=== PATIENT | female | born 1950 | race Caucasian/White ===

== ENCOUNTER 2021-10-04 14:15 | Outpatient (CLI) | payer MEDICARE, SELFPAY ==
[2021-10-04 16:42] LABS: Albumin* 4.6 g/dL (3.3-5.0); Chloride* 103 mmol/L (96-114); Potassium* 3.6 mmol/L (3.6-5.1); Sodium* 140 mmol/L (135-149)
[2021-10-04 16:44] LABS: Aspartate Amino Transferase* 30 U/L (12-35); Bilirubin Total* 0.8 mg/dL (0.1-1.5); Carbon Dioxide* 26 mmol/L (20-32); Creatinine* 0.9 mg/dL (0.5-1.5); Total Protein* 7.3 g/dL (6.0-8.3)
[2021-10-04 16:45] LABS: Alanine Aminotransferase* 17 U/L (4-35); Alkaline Phosphatase* 107 U/L (40-150); Blood Urea Nitrogen* 15 mg/dL (7-30); Calcium* 9.6 mg/dL (8.4-10.6); Glucose* 98 mg/dL (60-115)
[2021-10-04 22:16] LABS: Free T4 Free Thyroxine* 1.38 ng/dL (0.70-1.85)
== END 2021-10-04 14:16 | disposition home or self-care (01) ==
PROVIDERS: PCP Internal Medicine; Visit Provider Internal Medicine
DX: E03.9 Hypothyroidism, unspecified (principal); I10 Essential (primary) hypertension; F40.9 Phobic anxiety disorder, unspecified; G47.00 Insomnia, unspecified; K75.4 Autoimmune hepatitis
CPT/HCPCS: 80053; 84439; 84443

== ENCOUNTER 2021-11-16 13:55 | Outpatient (CLI) | payer MEDICARE, SELFPAY ==
--- NOTE | 2021-11-16 14:00 | CRLHL7_ITS ---
For Patients: As a result of the Century Cures Act, medical imaging exams and procedure reports are released immediately into your electronic medical record. You may view this report before your referring provider. If you have questions, please contact your health care provider. BILATERAL SCREENING MAMMOGRAM WITH COMPUTER-AIDED DETECTION AND TOMOSYNTHESIS TECHNIQUE: CC and MLO views were obtained. These mammographic images have been obtained using full-field digital technique. These mammographic images were interpreted with the benefit of computer-aided detection. Breast Tomosynthesis was used in this interpretation. COMPARISON FILM: 11/08/20, 11/06/19, 07/16/18. FINDINGS: The breasts are heterogeneously dense, which may obscure small masses IMPRESSION: There is no radiographic evidence for malignancy. ASSESSMENT: BI-RADS Category 1: Negative RECOMMENDATION: Routine screening mammogram in 1 year. A lay language report of this examination will be provided to the patient. Eliseo Win M.D. Diagnostic Radiologist [email or web address] SALOME/Dictated by: Eliseo Win MD @ 11/17/2021 12:09:00 PM (Electronically Signed)
== END 2021-11-16 13:56 | disposition home or self-care (01) ==
LOC: MAMMO 14:03
PROVIDERS: PCP Internal Medicine; Visit Provider Internal Medicine
DX: Z12.31 Encounter for screening mammogram for malignant neoplasm of breast (principal); R92.2 Inconclusive mammogram
CPT/HCPCS: 77063; 77067

== ENCOUNTER 2022-10-08 10:23 | Outpatient (CLI) | payer MEDICARE, SELFPAY | END 2022-10-08 10:24 | disposition home or self-care (01) | LOC: NFLDREF 10:24 | PROVIDERS: PCP Internal Medicine; Visit Provider Internal Medicine | DX: E03.9 Hypothyroidism, unspecified (principal); I10 Essential (primary) hypertension | CPT/HCPCS: 84439; 84443 ==

== ENCOUNTER 2022-11-05 08:05 | Day surgery (SDC) | payer MEDICARE, SELFPAY ==
[2022-11-05] VITALS (8 sets, daily range): BP systolic 139–191; BP diastolic 78–94; PULSE 55–68; RESP 13–16; TEMP 36.9; O2SAT 95–100; BMI 20.9
[2022-11-05] MEDS: LACTATED RINGERS 1000 ML 1,000 ML 100 ML IV (08:50)
[2022-11-05] MEDS: SODIUM CHLORIDE 0.9 % (FLUSH) 10 ML SYRINGE IVF (08:50)
[2022-11-05] MEDS: fentaNYL 100 MCG/2 ML inj IVP (09:23)
[2022-11-05] MEDS: MIDAZOLAM HCL 1 MG/ML inj IVP (09:23)
--- NOTE | 2022-11-05 09:33 | SUR.PREOP ---
TIME?OUT:?09 PT/RN/MDA?VERIFICATION?OF?SURGICAL?SITE,?PROCEDURE,?AND?CONSENT OBTAINED?PRIOR?TO?INVASIVE?PROCEDURE.
--- NOTE | 2022-11-05 10:18 | P.NB_ITS ---
Nerve Block Nerve Block Time Seen by Provider: 09:31 Date Seen: 11/05/22 Type of block requested by surgeon for post-operative analgesia: axillary Side: left Time out performed: Yes Verification of patient name: Yes Verification of date of : Yes Site marking: site marked Name of person performing procedure: [place] Continuous monitoring Was continuous monitoring of O2 sat, B/P, monitoring specialist, recorded every 15 minutes?: Yes Procedure Checklist: sterile prep, needles and gloves Ultrasound guided. Images saved: Yes Medications given in 5ml increments after negative aspiration: Ropivicaine %: 0.5 mL: 30 Needle gauge: 22 Patient tolerated procedure well: Yes Additional comments: Needle noted adjacent to nerve Block Charges Block Charge (with Pro Fee): Brachial Plexus Use of Ultrasound Machine for Block: Yes- US Guidance/pain block
[2022-11-05] MEDS: BACITRACIN OINTMENT BULK TUBE 1 APPLIC TOPICAL (11:01)
--- NOTE | 2022-11-05 11:27 | W.ANESCHARGE ---
Anesthesia Charges Start Date/Time Anesthesia Start Date: 11/05/22 Anesthesia Start Time: 09:35 Stop Date/Time Anesthesia Stop Date: 11/05/22 Anesthesia Stop Time: 11:15
--- NOTE | 2022-11-05 11:47 | PM.ORPRC ---
Procedure Note Date of procedure: 11/05/22 Procedure: PREOPERATIVE DIAGNOSIS: 1. Left hand Dupuytren's contracture involving the long and ring finger POSTOPERATIVE DIAGNOSIS: 1. Left hand Dupuytren's contracture involving the long and ring finger PROCEDURE: 1. Left hand open fasciectomy involving 2 separate digits (long and ring finger) SURGEON: Farhat Craig MD. DIAGNOSTIC SALES SPECIALIST: Ken Llanos. ANESTHESIA: Regional block plus MAC IMPLANTS: None TOURNIQUET: 40 minutes at 225 torr EBL: 2 mL COMPLICATIONS: None evident INDICATIONS: The patient is a pleasant 72-year-old [id number] female who has experienced Dupuytren's contractures involving the long and ring finger on the left hand. These have started to cause contracture of her MCP joints of the relevant fingers and limited function accordingly. Nonoperative management has been tried but unsuccessful. Given the failure of nonoperative management, and how this affects daily life, surgery was recommended. DESCRIPTION OF PROCEDURE: Following a thorough discussion of risks, benefits, and alternatives consent was obtained and the operative extremity was marked. The left upper extremity is prepped and draped in appropriate sterile fashion using ChloraPrep. After time-out including proper patient, site, and procedure the limb was exsanguinated and the tourniquet inflated. A Shazia type of incision was made primarily in line with long finger. Were able to dissect subcutaneously over to the ring finger to help mobilize/excise that palmar fascial tissue. Sharp incision through skin and blunt dissection through subcutaneous tissue allowed identification of this thickened palmar fascia that was immediately adherent to the subcutaneous and subcuticular layer. There is also extensive adhesions branching to the deeper structures including the digital artery and nerves as well as some of the flexor tendons. We were able to isolate the hypertrophied fascial tissue. We eventually released it from the most proximal extent and tracked it distally releasing it from its various adhesed connections. Extreme caution was taken around the digital artery and nerve regions. We were able to work underneath the skin to access the extensions the progressed to the ring finger. We also opened the visualized those working on to the long finger. Again 2 separate digits were involved and extending into the palm into unified origin more proximally. A thorough irrigation normal saline was performed. Closure performed with 4-0 nylon in interrupted horizontal mattress fashion. Of note, tourniquet was deflated and hemostasis was achieved. Dressings are applied, and a volar splint was applied to provide extension force to the MCP and PIP joints of the digits. The wrist was in slight were flexed posture to take some tension off the neurovascular structures, which were otherwise quite tight due to the contracted state the digit had been in for years. PLAN: 1. Encourage elevation of the operative extremity. 2. Ibuprofen and/or acetaminophen as needed for pain. 3. Elevate operative extremity. 4. Follow up in clinic in 7-10 days. Removal of splint. OT referral for possible Orthoplast splint application and ongoing teaching/monitoring digit range of motion recovery.
== END 2022-11-05 12:25 | disposition home or self-care (01) ==
PROVIDERS: PCP Internal Medicine; Visit Provider Orthopaedic Surgery Sports Medicine
PROC: (CPT 25000; principal; 2022-11-05 09:30)
DX: M72.0 Palmar fascial fibromatosis [Dupuytren] (principal); G89.18 Other acute postprocedural pain
CPT/HCPCS: 26123; 26125; 400; 64415; 76942; 88305; J2250; J2704; J2795; J3010; J7120

== ENCOUNTER 2023-02-08 12:30 | Outpatient (RCR) | payer MEDICARE, SELFPAY ==
--- NOTE | 2022-11-20 18:05 | OT.OPOE ---
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 Pt takes prednisone when she is having a flare up . Pt also has an allergy to Sulfa. 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 Medical/Functional History Medical History Reviewed Yes Prior Level of Function/Mobility Full, pain-free use of her LUE with limitations related to impaired ROM secondary to Dupuytren's contracture. Social History Employment Status Retired Current Occupation Retired elementary and gifted school operations manager Hobbies Enjoys riding bike, walking and caring for her dog. Fitness Stays quite active Ortho Subjective Subjective Subjective Pt states her pain can be quite high if trying to use her hand, rates at a 8-9/10, not bad at rest. Pt had her sutures removed today and has been referred to OT for custom splinting and ROM exs. Pt's attends OT with pt today. Pt is looking forward to having a smaller splint as she had a lot of trouble sleeping with her previous splint. Pain Assessment Pain Present Pain Present Pain Reported Range of Motion and Strength Wrist Range of Motion and Strength Wrist Range of Motion and Strength AROM of BUE shoulders, elbows, forearms and wrists are WFL throughout. AROM of the LUE hand is limited secondary to recent surgery and hx of Dupuytren's contractures affecting the LUE LF, RF, and SM. AROM of the LUE LF MP is 0-40, PIP is -10-35, DIP is 0- 10. AROM of the LUE RF MP is 0-35, PIP is -15-35, DIP is 0- 15. AROM of the LUE SF MP is 0-50, PIP is 0-40, and DIP is 0-30. Too early for strength testing. OT Objective Data Hand Hand Dominance Right Skin/Wounds/Edema Comments 11/20/22 Surgical incisions are dry with areas of necrotic tissue / scabs, which are expected for this stage of healing. Pt does have moderate swelling in her fingers and hand. No drainage noted, no s/s of infection. OT Problems Problems Problems Decreased Strength,Decreased Range of Motion,Decreased Dexterity,Pain,Decreased Coordination,Lifting,Gripping, Pinching Other Problems Opening Containers,Dressing, Computer,Sleeping Patient Potential Good Assessment Assessment Assessment Pt presents to OT 15 days s/p LUE palmar fasciectomy with expected levels of weakness, swelling, limited ROM and necrotic / scabbed tissue. These deficits limit pt's ability to use her LUE to assist with ADLs and IADLs that require gripping, lifting , or pinching with her LUE. Pt will benefit from skilled OT intervention to address custom splinting needs for protective healing and positioning of the LUE as well as to restore full, pain-free use of her LUE. Occupational Therapy Treatment Plan - OP Potential Rehabilitation Potential Good Set Goals Goals Set with Patient Yes Goals Goals 1. Pt will be independent and compliant with HEP in order to resume full, pain-free use of the involved UE. 3 weeks 2. Pt will demonstrate full, pain-free AROM of the involved UE in order to improve ability to grasp and hold. 6 weeks 3. 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 8 weeks. Target Date 02/11/23 Treatment Plan Treatment Plan Evaluation,Edema Control,Joint Mobilization,Manual Therapy, Splinting,Ultrasound,Wound Care/Scar Management, Therapeutic Exercise, Therapeutic Activities,Self Care/Home Management,Education Expected Frequency 1-2x Week Expected Duration 8-10 Weeks Home Program Home Program Home Program Initiated Home Program Specifics Initiated custom splinting routine with recommendations for night time use and most of the time during the day except during shower and exercises for 2 full weeks and then night time only for at 8 -12 weeks. Pt was inst in AROM exs every 2 hours. Certification Certification I Certify That: Therapy Services Provided, Therapy Plan Established, Therapy Plan Reviewed Recertification Information Recertification Information Initial Certification Date 11/20/22 Recertification Due Date 02/18/23 Reasons to Continue Skilled Therapy Initiated OT today for custom splinting and AROM exs following palmar fasciectomy due to Dupuytren's contractures affecting LUE 3- 5th digits resulting in limited ROM and weakness / impaired ADLs and IADLs. Rehabilitation Potential Good Continued Plan of Care and Interventions Please see above Provider Signature Shows Agreement With POC & Medical Necessity Physician Comment/Change Comment or Changes Physician NPI Number #
== END 2023-06-08 23:59 | disposition home or self-care (01) ==
PROVIDERS: PCP Internal Medicine; Visit Provider Orthopaedic Surgery Sports Medicine
DX: M72.0 Palmar fascial fibromatosis [Dupuytren] (principal); R41.844 Frontal lobe and executive function deficit; Z98.890 Other specified postprocedural states; Z51.89 Encounter for other specified aftercare
CPT/HCPCS: 97035; 97110; 97140; 97165; L3808; X5282

== ENCOUNTER 2023-06-12 10:38 | Outpatient (CLI) | payer MEDICARE, SELFPAY | END 2023-06-12 10:39 | disposition home or self-care (01) | PROVIDERS: PCP Internal Medicine; Visit Provider Internal Medicine | DX: R41.3 Other amnesia (principal); E03.9 Hypothyroidism, unspecified; I10 Essential (primary) hypertension | CPT/HCPCS: 80053; 84439; 84443; 87086; 87186 ==

== ENCOUNTER 2023-06-20 09:52 | Outpatient (CLI) | payer MEDICARE, SELFPAY ==
--- NOTE | 2023-06-20 10:15 | MM_ITS ---
Patient: ELIAS HUDSON Facility:?[facility] Patient ID:?[id number] Site Patient ID:?[id number]. Site :?[id number] Study:?XRay-Breast Bilateral 3D W/CAD-06/20/2023 12:15:42 PM Ordering Physician:ESTHELA Final Report: BILATERAL SCREENING MAMMOGRAM WITH COMPUTER-AIDED DETECTION AND TOMOSYNTHESIS TECHNIQUE: CC and MLO views were obtained. These mammographic images have been obtained using full-field digital technique. These mammographic images were interpreted with the benefit of computer-aided detection. Breast Tomosynthesis was used in this interpretation. COMPARISON FILM: 11/16/21, 11/08/20, 11/06/19. FINDINGS: There are scattered areas of fibroglandular density IMPRESSION: There is no radiographic evidence for malignancy. ASSESSMENT: BI-RADS Category 1: Negative RECOMMENDATION: Routine screening mammogram in 1 year. A lay language report of this examination will be provided to the patient. Eliseo Win M.D. Diagnostic Radiologist [email or web address] CLARENCE/[email or web address] Transcribed: 2:25 p.mChristian ham/Dictated by: Eliseo Win MD @ 06/26/2023 12:46:00 PM Signed by:?Eliseo Win MD @06/26/2023 3:06:14 PM (Electronic Signature)
== END 2023-06-20 09:53 | disposition home or self-care (01) ==
LOC: MAMMO 09:53
PROVIDERS: PCP Internal Medicine; Visit Provider Obstetrics & Gynecology
DX: Z12.31 Encounter for screening mammogram for malignant neoplasm of breast (principal)
CPT/HCPCS: 77063; 77067

== ENCOUNTER 2023-07-16 15:00 | Outpatient (RCR) | payer MEDICARE, SELFPAY ==
--- NOTE | 2023-06-26 11:49 | OT.OPGNE2 ---
OT Outpatient General/Neuro Eval OT Outpatient General/Neuro Eval* Start: 06/25/23 17:25 Freq: Status: Active Protocol: Document 06/25/23 17:26 [facility] (Rec: 06/25/23 17:26 W [id number]) E-signed By Hali Cramer OT OT Outpatient Evaluation Details Type Type Eval Complexity Low Insurance Information Insurance Information Insurance Information Medicare B Outpatient History/Precautions Current Condition Referring Provider Dr. Landin Medical Diagnoses memory loss Treatment Diagnoses decreased cognition resulting in poor judgement, safety awareness difficulty with ADLS. Medical/Functional History Medical History Reviewed Yes Social History Type of Dwelling Multilevel Home Lives With: Spouse Employment Status Retired Patient Subjective Subjective Patient Subjective I just want to feel like me again. Assessment Assessment Assessment The patient is a 72 year old female referred to outpatient OT for cognitive assessments. 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 Both spouse and patient noticed a change in patient's cogntion ~ 2 [address] ago. MRI and CT scan normal with white loss matter noted. The patient is scheduled for neuro psychological testing in September. She has been on Numenda for ~ 2 weeks with no side effects. Both spouse and patient describe difficulties with sequencing of tasks. She reports not being able to make meals any longer as she often forgets feng ingredients. She is not able to log on to the computer as well as describing decreased computer skills. She no longer texts on her phone. She continues to drive, however off road driving skills will be assessed during subsequent visits. She displays insight into her deficits and is very tearful during parts of the session. She voices being scared of the future and just wanting her old life back. This OT encouraged her to talk with her primary doctor regarding an anti-depressant. Patient and spouse agreeable to participate in cognitive assessment to estabish a current baseline. The patient' s spouse has noted a decline in patient's cognition since March. The MOCA was administered with the patient scoring 17/30. Patient's executive function score 1/5 and memory 0/5. Home safety/ problem solving questionnaire completed with the patient scoring 11.5/17 indicating deficits in safety and problem solving. The patient will benefit from skilled OT services to a continue cognitive and driving assessments in order for patient and spouse to have baseline scores and safety and assistance recommendations. Occupational Therapy Treatment Plan - OP Potential Rehabilitation Potential Good Set Goals Goals Set with Patient Yes Goals Goals Within 5 visits, the patient will.. 1. complete cognitive assessments in order to provide patient and spouse with recommendations and compensatory strategies. 2. complete off road driving assessments to determine patient's safety with driving. 3. along with her spouse, verbalize understanding of cognitive and driving results and recommendations. Treatment Plan Treatment Plan Evaluation,Self-Care/Home Management,Education Expected Frequency 1-2x Week Expected Duration 4-6 Weeks Certification Certification Statement I Certify That: Therapy Services Provided, Therapy Plan Established, Therapy Plan Reviewed Certification Information Clinic ID # [id number] Initial Certification Date 06/25/23 Recertification Due Date 06/25/23 Provider Signature Shows Agreement With POC & Medical Necessity Physician Comment/Change Comment or Changes Physician NPI Number #
== END 2023-11-13 23:59 | disposition home or self-care (01) ==
PROVIDERS: PCP Internal Medicine; Visit Provider Internal Medicine
DX: R41.3 Other amnesia (principal); Z51.89 Encounter for other specified aftercare
CPT/HCPCS: 97165; 97535

== ENCOUNTER 2023-10-02 09:36 | Outpatient (CLI) | payer MEDICARE, SELFPAY | END 2023-10-02 09:37 | disposition home or self-care (01) | PROVIDERS: PCP Internal Medicine; Visit Provider Internal Medicine | DX: I10 Essential (primary) hypertension (principal); E03.9 Hypothyroidism, unspecified; R41.3 Other amnesia; F41.9 Anxiety disorder, unspecified; G30.9 Alzheimer's disease, unspecified; F02.80 Dementia in other diseases classified elsewhere, unspecified severity, without behavioral disturbance, psychotic disturbance, mood disturbance, and anxiety | CPT/HCPCS: 80053; 80061; 84439; 84443 ==

== ENCOUNTER 2023-12-03 10:44 | Outpatient (CLI) | payer MEDICARE, SELFPAY | END 2023-12-03 10:45 | disposition home or self-care (01) | LOC: NFLDREF 10:45 | PROVIDERS: PCP Internal Medicine; Visit Provider Internal Medicine | DX: E03.9 Hypothyroidism, unspecified (principal) | CPT/HCPCS: 84439; 84443 ==

== ENCOUNTER 2024-10-06 11:06 | Outpatient (CLI) | payer MEDICARE, SELFPAY | END 2024-10-06 11:07 | disposition home or self-care (01) | PROVIDERS: PCP Internal Medicine; Visit Provider Internal Medicine | DX: E03.9 Hypothyroidism, unspecified (principal) | CPT/HCPCS: 84443 ==

== ENCOUNTER 2024-10-23 13:07 | Outpatient (CLI) | payer MEDICARE, SELFPAY ==
--- NOTE | 2024-10-23 13:40 | CRLHL7_ITS ---
For Patients: As a result of the Century Cures Act, medical imaging exams and procedure reports are released immediately into your electronic medical record. You may view this report before your referring provider. If you have questions, please contact your health care provider. INDICATION: BILATERAL SCREENING MAMMOGRAM, ASYMPTOMATIC 73 Y/O FEMALE COMPARISON: 06/20/2023, 11/16/2021, 11/08/2020 TECHNIQUE: Digital mammogram in CC and MLO projections including computer-aided detection (CAD) and tomosynthesis. BREAST COMPOSITION: There are scattered areas of fibroglandular density. FINDINGS: No suspicious findings. ASSESSMENT: BI-RADS 1 Negative RECOMMENDATION: Annual screening mammogram. A lay language report of this examination will be provided to the patient. Dictated by: Eliseo Win MD @ 10/26/2024 08:40:44 (Electronically Signed)
== END 2024-10-23 13:08 | disposition home or self-care (01) ==
LOC: MAMMO 13:08
PROVIDERS: PCP Internal Medicine; Visit Provider Internal Medicine
DX: Z12.31 Encounter for screening mammogram for malignant neoplasm of breast (principal)
CPT/HCPCS: 77063; 77067